=== PATIENT | male | born 1970 | race Caucasian/White ===

== ENCOUNTER 2022-01-03 15:33 | Outpatient (CLI) | payer BC, SELFPAY ==
[2022-01-03 20:11] LABS: Alanine Aminotransferase 74 U/L (6-50); Albumin Level 3.2 g/dL (3.5-5.1); Alkaline Phosphatase 363 U/L (38-126); Anion Gap 9 mmol/L (8-16); Aspartate Amino Transferase 138 U/L (17-59); Bilirubin,Total 5.6 mg/dL (0.2-1.3); Blood Urea Nitrogen 8 mg/dL (9-20); Calcium 8.7 mg/dL (8.4-10.2); Carbon Dioxide 24 mmol/L (22-30); Chloride 106 mmol/L (98-107); Estimated Glomerular Filt Rate > 60; Glucose 77 mg/dL (65-110); Magnesium 1.8 mg/dL (1.6-2.3); Potassium 3.7 mmol/L (3.4-5.0); Sodium 139 mmol/L (137-145)
[2022-01-03 21:34] LABS: Basophils Absolute Auto 0.1 K/mm3 (0.0-0.1); Basophils Percent Auto 1.4 % (0.2-1.2); Eosinophils Absolute Auto 0.1 K/mm3 (0-0.3); Eosinophils Percent Auto 1.7 % (0-4.4); Hematocrit 40.1 % (42.0-52.0); Hemoglobin 12.8 g/dL (14.0-18.0); Immature Granulocyte Absolute 0.01 K/mm3 (0.00-0.031); Immature Granulocyte Percent A 0.3 % (0-0.5); Immature Platelet Fraction Pct 19.2 % (0.9-11.2); Lymphocytes Absolute Auto 1.08 K/mm3 (0.9-3.2); Lymphocytes Percent Auto 31.2 % (18.3-44.2); Mean Corpuscular HGB Conc 31.9 g/dl (32-36); Mean Corpuscular Hemoglobin 36.2 pg (26-34); Mean Corpuscular Volume 113.3 fl (80-100); Mean Platelet Volume 14.8 fl (7.4-10.4); Monocytes Absolute Auto 0.4 K/mm3 (0.1-0.6); Monocytes Percent Auto 11.8 % (2.6-8.5); Neutrophils Absolute Auto 1.9 K/mm3 (1.3-6.7); Neutrophils Percent Auto 53.6 % (45.5-73.1); Platelet Count Result 46 k/mm3 (150-375); Red Blood Count 3.54 M/mm3 (4.6-6.20); Red Cell Distribution Width 15.5 % (11.5-14.5); White Blood Count 3.5 K/mm3 (4.5-10.0)
[2022-01-03 21:51] LABS: Platelet Estimate Decreased (Adequate)
[2022-01-03 21:53] LABS: Microcytosis 1+ (NORMAL)
== END 2022-01-03 15:34 | disposition home or self-care (01) ==
LOC: ANHGOSHLAB 15:35
PROVIDERS: PCP Family Medicine; Visit Provider Family Medicine
DX: E87.6 Hypokalemia (principal); E83.42 Hypomagnesemia; D69.6 Thrombocytopenia, unspecified
CPT/HCPCS: 36415; 80053; 83735; 85025; 85055

== ENCOUNTER 2022-05-05 11:56 | Emergency (ER) | payer BC, SELFPAY ==
[2022-05-05 14:04] VITALS: BP 128/98; PULSE 96; RESP 18; TEMP 36.3; O2SAT 99
--- NOTE | 2022-05-05 15:28 | ED.GENADULT ---
HPI - General Adult General Chief complaint: Extremity Problem,Nontraumatic Stated complaint: cyst on lt knee Time Seen by Provider: 05/05/22 15:24 Source: patient Mode of arrival: ambulatory Limitations: no limitations History of Present Illness HPI narrative: Patient presents today complaining of a bump to his left knee that started 6 days ago that became red and swollen and started draining today. He has applied ice with some relief. History of abscess in the past. Related Data Home Medications Medication Instructions Recorded Confirmed chlordiazepoxide HCl 25 mg capsule 25 mg PO QID PRN anxiety 01/03/22 folic acid 1 mg tablet 1 mg PO DAILY 01/03/22 01/03/22 furosemide 40 mg tablet 40 mg PO DAILY 01/03/22 01/03/22 lactulose 10 gram/15 mL oral 30 ml PO BID 01/03/22 01/03/22 solution nadolol 20 mg tablet 20 mg PO DAILY 01/03/22 01/03/22 pantoprazole 40 mg tablet,delayed 40 mg PO DAILY 01/03/22 01/03/22 release thiamine HCl (vitamin B1) 100 mg 100 mg PO DAILY 01/03/22 01/03/22 tablet Allergies Allergy/AdvReac Type Severity Reaction Status Date / Time No Known Allergies Allergy Unknown Unverified 01/03/22 15:00 Review of Systems Review of Systems: CONSTITUTIONAL: Denies body aches, fever, chills, or sweats. EYES: Denies visual changes, redness, or discharge. ENT: Denies rhinorrhea, congestion, sore throat, or otalgia. CARDIOVASCULAR: Denies chest pain, palpitations, or edema. RESPIRATORY: Denies cough or dyspnea. GASTROINTESTINAL: Denies abdominal pain, nausea, vomiting, or diarrhea. GENITOURINARY: Denies dysuria or hematuria. SKIN: Denies rash, itching, or wounds.+ Cyst to left knee MUSCULOSKELETAL: Denies back pain, joint pain, or myalgia. NEUROLOGIC: Denies headache, numbness, tingling, or weakness. PSYCH: Denies depression or anxiety. [facility] Past Medical History Medical History Alcohol abuse Ascites due to alcoholic cirrhosis Hepatic cirrhosis Family History Family History Mother Heart problem Social History Social History Smoking status: Never smoker Alcohol intake: current Alcohol use details: states he stopped drinking 2-3 daily Substance use type: does not use Comments At time of signature, I have reviewed and agree with nursing past medical, surgical, social and family history unless otherwise noted. Please see nursing chart for further information. There is no relevant family history pertinent to the presenting complaint Exam Narrative: GENERAL: Well-appearing, well-nourished, and in no acute distress. Jaundice HEAD: Normocephalic, atraumatic. EYES: EOMI. No redness or drainage. Conjunctivae normal. ENT: Mucous membranes pink and moist. NECK: Normal AROM. CHEST: No respiratory distress. EXTREMITIES: 3cm fluctuant area to the left upper knee area with large surrounding erythema and increased warmth. Draining serous fluid. Tender to palpation. SKIN: Warm, dry, no rash. Capillary refill normal. Normal skin turgor. NEURO: No focal deficits. Alert and oriented x3. Gait steady. PSYCH: Normal affect. No signs of depression or anxiety. Course Course Level of Care: Express Care Visit Vital Signs Vital signs: Vital Signs Temperature 97.4 F L 05/05/22 14:04 Pulse Rate 96 05/05/22 14:04 Respiratory Rate 18 05/05/22 14:04 Blood Pressure 128/98 H 05/05/22 14:04 Pulse Oximetry 99 05/05/22 14:04 Oxygen Delivery Room Air 05/05/22 14:04 Temperature 97.4 F L 05/05/22 14:04 Pulse Rate 96 05/05/22 14:04 Respiratory Rate 18 05/05/22 14:04 Blood Pressure 128/98 H 05/05/22 14:04 Pulse Oximetry 99 05/05/22 14:04 Oxygen Delivery Room Air 05/05/22 14:04 Reviewed. Pt has been instructed to follow up with his PCP regarding his elevated blood pressure
== END 2022-05-05 16:10 | disposition home or self-care (01) ==
PROVIDERS: Emergency Provider Nurse Practitioner
DX: L03.116 Cellulitis of left lower limb (principal); L02.416 Cutaneous abscess of left lower limb
CPT/HCPCS: 10060; 99213; G0463

== ENCOUNTER 2022-08-25 20:51 | Inpatient (IN) | payer BC, SELFPAY ==
[2022-08-25] VITALS (16 sets, daily range): BP systolic 108–131; BP diastolic 59–72; PULSE 71–92; RESP 12–19; TEMP 36.3; O2SAT 98–100
--- NOTE | ~2022-08-25 | CT_ITS ---
EXAMINATION: CT BRAIN W/O DATE: 08/26/2022 00:48 INDICATION: Confusion. Treatment for stenosis. TECHNIQUE: Computed tomography (CT) of the head was performed without intravenous contrast. The dose- length product was 681.00 mGy-cm. Automated exposure control and iterative reconstruction technique w ere employed. COMPARISON: CT dated 11/12/2018 FINDINGS: Normal brain parenchymal volume for age. Normal tuttle-white differentiation. No acute intrac ranial hemorrhage, infarction, mass or mass effect. No ventriculomegaly or midline shift. Midline sagittal images demonstrate a normal corpus callosum, c raniovertebral junction and sella turcica. Basilar cisterns are patent. There is mucosal thickening of the frontal, maxillary, ethmoid and sphenoid sinuses. Mastoids are pne umatized. IMPRESSION: 1. No acute intracranial abnormality. 2: Pansinusitis. Reviewed, dictated and finalized at location A.
--- NOTE | ~2022-08-25 | US_ITS ---
EXAMINATION: US paracentesis abd w/image DATE: 08/27/2022 12:24 INDICATION: Cirrhosis with ascites TECHNIQUE: The procedure and its risks and benefits were discussed with the patient. Potential risks discussed included bleeding and infection. The skin was prepped and draped in sterile fashion. 1% lid ocaine was used for local anesthesia. Under ultrasound guidance, a 5 Fr catheter with trochar was adv anced into the ascites in the right lower quadrant. Fluid was aspirated into vacuum bottles. The cath eter was removed, and a dressing was applied. There were no immediate complications. FINDINGS: Ultrasound images demonstrate ascites and the catheter within the fluid. IMPRESSION: 1. Successful ultrasound-guided paracentesis yielding 550 mL of cloudy orange-colored fluid. Reviewed, dictated and finalized at location A. IMPRESSION: 1. Successful ultrasound-guided paracentesis yielding 550 mL of cloudy orange- colored fluid.
--- NOTE | ~2022-08-25 | XR_ITS ---
XR chest 2V 08/26/2022 14:21 Indication: Confusion Procedure: 2 view chest Comparison: 11/12/2018 Findings: Moderate left pleural effusion with compressive atelectasis. Right lung clear. Heart size n ormal. No pneumothorax. No acute osseous abnormality. Impression: 1: Moderate left pleural effusion with underlying compressive atelectasis. Reviewed, dictated and finalized at location A. Impression: 1: Moderate left pleural effusion with underlying compressive atelectasis.
--- NOTE | 2022-08-25 20:56 | ECG_ITS ---
Measurements Intervals [place] Rate: 70 P: 28 WI: 130 QRS: 13 QRSD: 109 T: 18 QT: 386 QTc: 419 Interpretive Statements SINUS RHYTHM POSSIBLE LEFT ATRIAL ENLARGEMENT BASELINE ARTIFACT- I, III, AVR, AVL, AVF, V1-V2 BORDERLINE ECG COMPARED TO ECG 11/12/2018 14:03:41 NO SIGNIFICANT CHANGES Electronically Signed On 08-25-2022 21:47:38 CDT by Kelton Veras D.O.
[2022-08-25 21:17] LABS: Basophils Absolute Auto 0.1 K/mm3 (0.0-0.1); Eosinophils Absolute Auto 0.1 K/mm3 (0-0.3); Eosinophils Percent Auto 2.3 % (0-4.4); Hemoglobin 12.2 g/dL (14.0-18.0); Immature Granulocyte Absolute 0.01 K/mm3 (0.00-0.031); Immature Granulocyte Percent A 0.2 % (0-0.5); Immature Platelet Fraction Pct 1.8 % (0.9-11.2); Lymphocytes Absolute Auto 1.05 K/mm3 (0.9-3.2); Lymphocytes Percent Auto 21.6 % (18.3-44.2); Mean Corpuscular Hemoglobin 32.3 pg (26-34); Mean Corpuscular Volume 97.9 fl (80-100); Mean Platelet Volume 9.7 fl (7.4-10.4); Monocytes Absolute Auto 0.4 K/mm3 (0.1-0.6); Neutrophils Absolute Auto 3.3 K/mm3 (1.3-6.7); Neutrophils Percent Auto 66.9 % (45.5-73.1); Platelet Count Result 102 k/mm3 (150-375); Red Blood Count 3.78 M/mm3 (4.6-6.20); Red Cell Distribution Width 15.3 % (11.5-14.5); White Blood Count 4.9 K/mm3 (4.5-10.0)
[2022-08-25 21:30] LABS: INR 2.2; Prothrombin Time 23.3 Seconds (11.1-14.7)
[2022-08-25 22:02] LABS: Alanine Aminotransferase 31 U/L (6-50); Albumin Level 2.9 g/dL (3.5-5.1); Alkaline Phosphatase 200 U/L (38-126); Anion Gap 6 mmol/L (8-16); Aspartate Amino Transferase 71 U/L (17-59); Bilirubin,Total 8.3 mg/dL (0.2-1.3); Blood Urea Nitrogen 7 mg/dL (9-20); Calcium 8.5 mg/dL (8.4-10.2); Carbon Dioxide 25 mmol/L (22-30); Chloride 107 mmol/L (98-107); Estimated CRCL calculation 133 ml/min; Estimated Glomerular Filt Rate > 60; Glucose 113 mg/dL (65-110); Potassium 2.7 mmol/L (3.4-5.0); Sodium 138 mmol/L (137-145)
[2022-08-25 22:39] LABS: Ammonia 77 umol/L (9-30)
[2022-08-25] MEDS: POTASSIUM CHLORIDE 20 MEQ TABLET 40 MEQ PO (23:44)
--- NOTE | 2022-08-25 23:49 | ED.AMS ---
HPI - Altered Mental Status General Chief Complaint: Altered Mental Status <Andres Quezada PA-C - Last Filed: 08/26/22 03:34> Stated Complaint: not acting right, jaundice <Andres Quezada PA-C - Last Filed: 08/26/22 03:34> Time Seen by Provider: 08/25/22 23:14 <Andres Quezada PA-C - Last Filed: 08/26/22 03:34> Source: patient and family <ANG Haro Last Filed: 08/26/22 03:34> Mode of arrival: ambulatory <Andres Quezada PA-C - Last Filed: 08/26/22 03:34> Limitations: altered mental status <Andres Quezada PA-C - Last Filed: 08/26/22 03:34> History of Present Illness HPI narrative: History is somewhat limited due to altered mental status. This is a 51-year-old male who is presenting to the ED with chief complaint of AMS and jaundice beginning yesterday around 2200. Patient has known history of cirrhosis and is being managed by hepatology services at [facility]. He is brought in by brother who is supplementing the history. He states that they changed his diuretic this week at [facility] but is unsure how. Family reports increased lower leg swelling bilaterally. Brother also reports jaundice which is increased. Brother states that patient has not had any complaints of abdominal pain or fevers. Patient denies any fevers or abdominal pain to me as well. Denies LOC. Denies any recent alcohol use <Andres Quezada PA-C - Last Filed: 08/26/22 03:34> Related Data Home Medications: Home Medications Medication Instructions Recorded Confirmed chlordiazepoxide HCl 25 mg capsule 25 mg PO QID PRN anxiety 01/03/22 folic acid 1 mg tablet 1 mg PO DAILY 01/03/22 01/03/22 furosemide 40 mg tablet 40 mg PO DAILY 01/03/22 01/03/22 lactulose 10 gram/15 mL oral 30 ml PO BID 01/03/22 01/03/22 solution nadolol 20 mg tablet 20 mg PO DAILY 01/03/22 01/03/22 pantoprazole 40 mg tablet,delayed 40 mg PO DAILY 01/03/22 01/03/22 release thiamine HCl (vitamin B1) 100 mg 100 mg PO DAILY 01/03/22 01/03/22 tablet <Andres Quezada PA-C - Last Filed: 08/26/22 03:34> Allergies/Adverse Reactions: Allergies Allergy/AdvReac Type Severity Reaction Status Date / Time No Known Allergies Allergy Unknown Verified 08/25/22 20:51 <Andres Quezada PA-C - Last Filed: 08/26/22 03:34> Review of Systems Review of Systems: ROS unobtainable: Yes unobtainable due to mental status <Andres Quezada PA-C - Last Filed: 08/26/22 03:34> PMFSH Past Medical History Medical History: Medical History Alcohol abuse Ascites due to alcoholic cirrhosis Hepatic cirrhosis <Andres Quezada PA-C - Last Filed: 08/26/22 03:34> Family History Family History: Family History Mother Heart problem <Andres Quezada PA-C - Last Filed: 08/26/22 03:34> Social History Social History: Social History Smoking status: Never smoker Alcohol intake: current Alcohol use details: states he stopped drinking 2-3 daily Substance use type: does not use <ANG Haro Last Filed: 08/26/22 03:34> Exam Narrative: GENERAL: Well-appearing, well-nourished, and in no acute distress. HEAD: Normocephalic, atraumatic. EYES: Scleral icterus present. PERRLA and EOMI. ENT: Nares clear, no rhinorrhea or epistaxis. Mucous membranes moist. Oropharynx without tonsillar hypertrophy exudate or other lesions. NECK: Supple. No adenopathy or masses. CHEST: No respiratory distress. Clear to auscultation. No wheezes rales or rhonchi HEART: Regular rate and rhythm. No murmur heard. Normal peripheral pulses. ABDOMEN: Soft, nontender, nondistended, normal active bowel sounds. Negative peritoneal signs. No ascites are appreciated. Negative for vascular markings. EXTREMITIES: Normal range of motion. No edema. SKIN: Diffuse jaundice. warm, dry, no rash.
[2022-08-26] VITALS (36 sets, daily range): BP systolic 97–119; BP diastolic 51–81; PULSE 74–88; RESP 11–16; TEMP 36.2; O2SAT 98–100
[2022-08-26] MEDS: POTASSIUM CHLORIDE INJ 40 MEQ in SODIUM CHLORIDE 0.9% IV 500 ML 130 MEQ IVPB (00:08)
--- NOTE | 2022-08-26 03:43 | PC.NURSE ---
Patient accepted to [facility] WAITLIST. DR. GARCIA ACCEPTING PROVIDER.
[2022-08-26 04:02] LABS: Ethanol < 10 mg/dL (<10); Lactic Acid Reflex 1.5 mmol/L (0.7-2.0)
[2022-08-26 04:11] LABS: Magnesium 1.6 mg/dL (1.6-2.3); Phosphorus 3.5 mg/dL (2.5-4.5)
[2022-08-26] MEDS: MAGNESIUM SULF 2 GM/WATER 50ML 2 GM/50 ML BAG IVPB (04:31)
[2022-08-26 04:55] LABS: Appearance Urine Clear (Clear); Bilirubin Urine 1+ (Negative); Blood Urine Negative (Negative); Color Urine Dark Yellow (Yellow); Glucose Urine UA Negative (Negative); Ketones Urine Negative (Negative); Leukocyte Esterase Ur Negative LEU/UL (Negative); Nitrate Urine Negative (Negative); Protein Urine Negative (Negative); Specific Grav Ur 1.007 (1.001-1.035); pH Urine 7.5 (5.0-9.0)
[2022-08-26 05:19] LABS: Add Urine Microscopic? YES
--- NOTE | 2022-08-26 09:04 | ADMGEN ---
This patient, Ricco Carreon, was admitted to [facility] Surg Room 333-01. Patient/family oriented to hospital policies and general routines including ID bracelet, bed and alarms, visiting hours, pain management, procedures, bathroom and other care routines, personal items, smoking policy, room service/diet, and visiting hours. Information on how to activate the Rapid Response Team has been discussed. Patient/Family are encouraged to report perceived risks to care and to ask questions if they do not understand what they are told or what they should do.
[2022-08-26] MEDS: LACTULOSE 20 GM/30 ML UDC PO ×3 (09:43→18:13)
--- NOTE | 2022-08-26 11:16 | PM.IMHP ---
H&P: [facility] History of Present Illness Date/Time: 08/26/22 11:16 Chief Complaint: Altered mental status Narrative: 51yo male with cirrhosis with varices from alcohol abuse here for altered mental status. Patient is more oriented today but still mildly confused so his history is suspect. States he has been confused for the past 2 days and has been out of it . He has a history of alcoholism drinking up to a 5th a day with his last drink being April 09, 2022. He denies any alcohol use since that time. No drug use. No history of drug use. No history of IV drug use. He receives the majority is care at [facility]. States that his cirrhosis is related to alcoholism. There has been no new medications. He has been compliant with his home medications. No [id number]-vxy-xretqmy medications. He has not had a change in his diet. He is watching his sodium intake. He denies constipation. He has been having 1-2 bowel movements per day. He takes the lactulose 3 times a day and is on rifaximin as well. Denies fever, chills, headaches, chest pain, shortness a breath, cough, nausea, vomiting, abdominal pain, dysuria, hematuria, melena or hematochezia. His last paracentesis he believes was in June. He has a hx of SBP. He has bilateral pedal edema that has been present over the past 3-4 months although he seems unsure of this. He denies any history of CHF. No calf pain. No pleuritic chest pain. In the ED, patient was hemodynamically stable. White count was normal. Hemoglobin was 12. Platelet count was 102 K. Patient has a history of thrombocytopenia. INR is 2.2. Potassium was 2.7. Bilirubin is 8.3 which is not uncommon for this patient. Ammonia level 77. Urinalysis showed 1+ bilirubin otherwise negative. Alcohol levels less than 10. Head CT showed no acute intracranial abnormalities but did show pansinusitis. Patient denies any headache, vision changes, hearing changes or sinus symptoms. EKG showed normal sinus rhythm but no significant change from prior EKG. Patient was treated with lactulose. He was given magnesium and potassium. He was admitted for further care. Review of Systems Review of Systems: All systems reviewed & are unremarkable except as noted in HPI and below [facility] Past Medical History Medical History (Updated 08/26/22 @ 12:12 by Cisco Schaeffer MD) Alcohol abuse Anemia Ascites due to alcoholic cirrhosis Choledocholithiasis Coagulopathy Esophageal varices hx of banding. Hepatic cirrhosis Hyperbilirubinemia 7-9 range in early 2022 Hyponatremia SBP (spontaneous bacterial peritonitis) Family History Family History Mother Heart problem Social History Social History Smoking status: Never smoker Alcohol intake: current Alcohol use details: states he stopped drinking 2-3 daily Substance use type: does not use Lack of Transportation: No Lack of Food: Never True Current Housing: I Have Housing Concerned About Future Housing: No Difficulty Paying Gas/Electric Bills: Decline to Answer Difficulty Paying for Meds: Decline to Answer Currently Unemployed: Decline to Answer Education: Decline to Answer Difficulty w/ Childcare or Family Care: No Spiritual care concerns: No Meds Home Medications and Allergies Home Medications Medication Instructions Recorded Confirmed Type eplerenone 50 mg tablet 50 mg PO DAILY #90 tabs 01/03/22 08/26/22 Rx folic acid 1 mg tablet 1 mg PO DAILY 01/03/22 08/26/22 History furosemide 40 mg tablet 40 mg PO DAILY 01/03/22 08/26/22 History lactulose 10 gram/15 mL oral 30 ml PO BID 01/03/22 08/26/22 History solution nadolol 20 mg tablet 20 mg PO DAILY 01/03/22 08/26/22 History pantoprazole 40 mg tablet,delayed 40 mg PO DAILY 01/03/22 08/26/22 History release rifaximin 550 mg tablet (Xifaxan) 550 mg PO BID #60 tabs 01/03/22 03
[2022-08-26] MEDS: nadoloL 20 MG TABLET PO (12:52)
[2022-08-26] MEDS: POTASSIUM CHLORIDE 20 MEQ TABLET PO (12:53)
[2022-08-26] MEDS: PANTOPRAZOLE 40 MG TABLET PO (12:53)
[2022-08-26] MEDS: FOLIC ACID 1 MG TABLET PO (12:53)
[2022-08-26] MEDS: FUROSEMIDE 40 MG TABLET PO (12:53)
[2022-08-26] MEDS: POTASSIUM PHOS/SODIUM PHOS 250 MG TABLET PO (12:53)
[2022-08-26] MEDS: rifAXIMin 550 MG TABLET PO ×2 (12:53→21:08)
[2022-08-26] MEDS: THIAMINE HCL 100 MG TABLET PO (12:54)
[2022-08-26 13:29] LABS: Potassium 3.1 mmol/L (3.4-5.0)
--- NOTE | 2022-08-26 16:53 | WPDGICN ---
Assessment and Plan Assessment and plan (1) Acute hepatic encephalopathy: Code(s): K76.82 - Hepatic encephalopathy Status: Acute Assessment and Plan: he is near his baseline continue lactulose- ok to titrate for 3-4 BM a day, already on xifaxan (2) Decompensation of cirrhosis of liver: Code(s): K72.90 - Hepatic failure, unspecified without coma; K74.60 - Unspecified cirrhosis of liver Status: Acute Assessment and Plan: with known history of EV s/p banding on nadolol, previous paracentesis (abdomen exam benign but agree to get ultrasound to assess if ascites and if present then get fluid for study) meld score 24 (similar to recent office visit) (3) Coagulopathy: Code(s): D68.9 - Coagulation defect, unspecified Status: Acute Assessment and Plan: from liver disease (4) Hyperbilirubinemia: Code(s): E80.6 - Other disorders of bilirubin metabolism Status: Acute (5) Esophageal varices: Code(s): I85.00 - Esophageal varices without bleeding Status: Acute Assessment and Plan: no signs of bleeding (6) Acute hypokalemia: Code(s): E87.6 - Hypokalemia Status: Acute Assessment and Plan: treated GI Consult Note Consult date/time: 08/26/22 16:53 Reason for consult: liver encephalopathy, cirrhosis HPI: Ricco Carreon is a 51 year old male with history of alcoholic decompensated cirrhosis (sober since ) with known history of PSE on lactulose and xifaxan, previous paracentesis and EV on nadolol. He is seeing hepatology in [facility]. He came here with because has been confused for the past 2 days, denies any fever, pain or change in medications, he has been compliant with his home medications. He has been having 1-2 bowel movements per day and takes the lactulose 3 times a day and is on rifaximin as well.?ED evaluation he was hemodynamically stable.? White count was normal.? Hemoglobin was 12.? Platelet count was 102 K.? INR is 2.2.? Potassium was 2.7.? Bilirubin is 8.3, creat 0.9.? Ammonia level 77. Review of Systems Constitutional: Constitutional: Denies chills Eyes: Eyes: Denies blurry vision ENT: Reports Normal hearing present Cardiovascular: Cardiovascular: Denies chest pain Respiratory: Respiratory: Denies cough Gastrointestinal: Gastrointestinal: Denies abdominal pain Genitourinary: Genitourinary: Denies urinary frequency Musculoskeletal: Musculoskeletal: Denies back pain Integumentary/Breasts: Skin/Breast: Denies rash Neurologic: Reports confusion Psychiatric: Psychiatric: Denies homicidal ideation [facility] Past Medical History Medical History (Updated 08/26/22 @ 16:58 by Nathan Rebolledo MD) Alcohol abuse Anemia Ascites due to alcoholic cirrhosis Choledocholithiasis Coagulopathy Decompensation of cirrhosis of liver Esophageal varices hx of banding. Hepatic cirrhosis Hyperbilirubinemia 7-9 range in early 2022 Hyponatremia SBP (spontaneous bacterial peritonitis) Family History Family History Mother Heart problem Social History Social History Smoking status: Never smoker Alcohol intake: current Alcohol use details: states he stopped drinking 2-3 daily Substance use type: does not use Lack of Transportation: No Lack of Food: Never True Current Housing: I Have Housing Concerned About Future Housing: No Difficulty Paying Gas/Electric Bills: Decline to Answer Difficulty Paying for Meds: Decline to Answer Currently Unemployed: Decline to Answer Education: Decline to Answer Difficulty w/ Childcare or Family Care: No Spiritual care concerns: No Meds Home Medications and Allergies Home Medications Medication Instructions Recorded Confirmed Type eplerenone 50 mg tablet 50 mg PO DAILY #90 tabs 01/03/22 08/26/22 Rx folic acid 1 m
[2022-08-26] MEDS: POTASSIUM CHLORIDE 20 MEQ TABLET 40 MEQ PO (21:08)
[2022-08-27 06:37] VITALS: BP 139/61; PULSE 73; RESP 16; TEMP 35.9; O2SAT 100
[2022-08-27 06:57] LABS: Hematocrit 30.3 % (42.0-52.0); Hemoglobin 9.9 g/dL (14.0-18.0); Immature Platelet Fraction Pct 1.8 % (0.9-11.2); Mean Corpuscular HGB Conc 32.7 g/dl (32-36); Mean Corpuscular Hemoglobin 32.1 pg (26-34); Mean Corpuscular Volume 98.4 fl (80-100); Mean Platelet Volume 10.3 fl (7.4-10.4); Platelet Count Result 90 k/mm3 (150-375); Red Blood Count 3.08 M/mm3 (4.6-6.20); Red Cell Distribution Width 15.7 % (11.5-14.5); White Blood Count 3.7 K/mm3 (4.5-10.0)
[2022-08-27 07:03] LABS: Alanine Aminotransferase 28 U/L (6-50); Albumin Level 2.4 g/dL (3.5-5.1); Alkaline Phosphatase 149 U/L (38-126); Anion Gap 1 mmol/L (8-16); Aspartate Amino Transferase 60 U/L (17-59); Bilirubin,Total 6.6 mg/dL (0.2-1.3); Blood Urea Nitrogen 8 mg/dL (9-20); Calcium 7.8 mg/dL (8.4-10.2); Carbon Dioxide 26 mmol/L (22-30); Chloride 110 mmol/L (98-107); Estimated CRCL calculation 92 ml/min; Estimated Glomerular Filt Rate > 60; Glucose 74 mg/dL (65-110); Magnesium 1.6 mg/dL (1.6-2.3); Potassium 2.5 mmol/L (3.4-5.0); Sodium 137 mmol/L (137-145)
[2022-08-27] MEDS: MAGNESIUM SULF 2 GM/WATER 50ML 2 GM/50 ML BAG IVPB ×2 (09:52→17:34)
[2022-08-27] MEDS: LACTULOSE 20 GM/30 ML UDC PO ×3 (09:55→17:33)
[2022-08-27] MEDS: FUROSEMIDE 40 MG TABLET PO (09:55)
[2022-08-27] MEDS: POTASSIUM PHOS/SODIUM PHOS 250 MG TABLET PO (09:55)
[2022-08-27] MEDS: FOLIC ACID 1 MG TABLET PO (09:55)
[2022-08-27 09:56] VITALS: PULSE 76
[2022-08-27] MEDS: PANTOPRAZOLE 40 MG TABLET PO (09:56)
[2022-08-27] MEDS: nadoloL 20 MG TABLET PO (09:56)
[2022-08-27] MEDS: THIAMINE HCL 100 MG TABLET PO (09:57)
[2022-08-27] MEDS: rifAXIMin 550 MG TABLET PO ×2 (09:57→20:49)
[2022-08-27] MEDS: POTASSIUM CHLORIDE INJ 40 MEQ in SODIUM CHLORIDE 0.9% IV 500 ML 130 MEQ IVPB (10:00)
--- NOTE | 2022-08-27 11:23 | PM.IMPN ---
Progress Note: A&P Assessment and Plan (1) Acute hepatic encephalopathy: Code(s): K76.82 - Hepatic encephalopathy Status: Acute Assessment and Plan: Patient presents with altered mental status. He has a history of hepatic encephalopathy. Ammonia level was 77. HCT showing pansinusitis but no acute intracranial abnormalities. No symptoms of sinusitis. CXR showing left pleural effusion. Mental status has normalized. Paracentesis ordered to exclude SBP. Follow up on paracentesis results if able to withdraw fluid. No albumin infusion since doubt this will be large volume. Continue Lactulose and Rifaximin (2) Acute alteration in mental status: Code(s): R41.82 - Altered mental status, unspecified Status: Acute Assessment and Plan: Related to above. (3) Hypokalemia: Code(s): E87.6 - Hypokalemia Status: Acute Assessment and Plan: Potassium was low on admission. Potassium was replaced. We continue oral potassium. Potassium low again so will replace and repeat levels later today. Also replace mag. (4) Cirrhosis: Code(s): K74.60 - Unspecified cirrhosis of liver Status: Acute Assessment and Plan: Pateint has alcoholic cirrhosis that he is followed for at [facility]. (5) Esophageal varices: Code(s): I85.00 - Esophageal varices without bleeding Status: Acute Assessment and Plan: Related to cirrhosis. No evidence of bleeding. (6) Alcohol abuse: Code(s): F10.10 - Alcohol abuse, uncomplicated Status: Acute Assessment and Plan: In remission. Last drink was 04/09/22. (7) Hyperbilirubinemia: Code(s): E80.6 - Other disorders of bilirubin metabolism Status: Acute Assessment and Plan: Bili elevated but chronic and actually better today than baseline. Follow. (8) Anemia: Code(s): D64.9 - Anemia, unspecified Status: Acute Assessment and Plan: Hgb low but stable. Anemai related to above (9) Coagulopathy: Code(s): D68.9 - Coagulation defect, unspecified Status: Acute Assessment and Plan: INR was therapeutic related to hepatic dysfunction. Subjective Date/time seen: 08/27/22 11:23 Interval history: 51yo male with cirrhosis with varices from alcohol abuse here for altered mental status.? Slept poorly last night. His leg edema is better he feels. He has been up walking to the bathroom. He denies feeling confused. Exam Narrative: AF 96.7 139/61 76 16 100% ra Gen - NARD Chest - decreased BS in the left base o/w clear. CV - RRR S1/S2 Abd - Soft, NT/ND, Positive BS Ext - 1+ pedal edema Neuro - Alert and oriented x4. Psych - Nml mood and affect Skin - Warm and dry Objective Data Vital Signs Vital Signs: Vital Signs - 24 hr 08/26/22 12:52 08/26/22 20:00 08/26/22 23:18 Temperature 97.2 F L Pulse Rate 84 84 83 Respiratory Rate 12 16 Blood Pressure 119/54 L Pulse Oximetry 100 100 Oxygen Delivery Room Air 08/27/22 06:37 08/27/22 09:56 Temperature 96.7 F L Pulse Rate 73 76 Respiratory Rate 16 Blood Pressure 139/61 Pulse Oximetry 100 Oxygen Delivery Intake/Output Intake/Output: Intake & Output 08/24/22 08/25/22 08/26/22 08/27/22 23:59 23:59 23:59 23:59 Intake Total 1494 720 Output Total 900 Balance 594 720 Meds/Results Medications: Active Medications Generic Name Dose Route Start Last Admin Trade Name Freq PRN Reason Stop Dose Admin Folic Acid 1 mg 08/26/22 12:20 08/27/22 09:55 Folic Acid 1 Mg Tablet PO 1 mg DAILY CELINE Administration Furosemide 40 mg 08/26/22 12:20 08/27/22 09:55 Furosemide 40 Mg Tablet PO 40 mg DAILY CELINE Administration Potassium Chloride 40 meq/ 520 mls @ 130 mls/hr 08/27/22 10:00 08/27/22 10:00 Sodium Chloride IVPB 08/27/22 13:59 130 mls/hr ONCE ONE Administration Lactulose 20 gm 08/26/22 13:00 08/27/22 09:55
[2022-08-27 12:56] LABS: Appearance Peritoneal Fluid Cloudy (Clear); Color Peritoneal Fluid Yellow (Colorless); Source Peritoneal Fluid Peritoneal Fluid
[2022-08-27 12:57] LABS: Nucleated Cells Peritoneal Flu 57 /uL (0-500); RBC Peritoneal Fluid 4000 /uL (0-100000)
[2022-08-27 13:19] LABS: Lymphocytes Peritoneal Fluid 78 %
[2022-08-27 13:20] LABS: Macrophages Peritoneal Fluid 10 %; Monocytes Peritoneal Fluid 7 %
[2022-08-27 15:52] LABS: Magnesium 1.9 mg/dL (1.6-2.3); Phosphorus 4.3 mg/dL (2.5-4.5)
--- NOTE | 2022-08-27 16:36 | WPDGIPROGNO ---
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 good appetite, back to his baseline. Also noted low K Review of Systems Review of Systems: All systems reviewed & are unremarkable except as noted in HPI and below Exam Const: General: comfortable and no acute distress HENMT: Face/Nose/Sinus: Normal nares present Eyes: Other: icteric sclerae Neck: Neck: supple Resp: Effort & Inspection: normal respiratory effort Cardio: Rate: regular rate GI: GI Palp: Yes Soft to palpation, No Tenderness to palpation present (GI) and No Guarding due to palpation present (GI) Auscultation: normal bowel sounds Skin: General skin exam: no rashes or lesions noted Neuro: Speech: normal speech Other: asterixis Extrem: General: normal to inspection Psych: Affect: normal affect Objective Data Vital Signs Vital Signs: Vital Signs - 24 hr 08/26/22 20:00 08/26/22 23:18 08/27/22 06:37 Temperature 97.2 F L 96.7 F L Pulse Rate 84 83 73 Respiratory Rate 12 16 16 Blood Pressure 119/54 L 139/61 Pulse Oximetry 100 100 100 Oxygen Delivery Room Air 08/27/22 09:56 Temperature Pulse Rate 76 Respiratory Rate Blood Pressure Pulse Oximetry Oxygen Delivery Intake/Output Intake/Output: Intake & Output 03/17/23 03/18/23 03/19/23 03/20/23 23:59 23:59 23:59 23:59 Intake Total 1494 720 Output Total 900 550 Balance 594 170 Meds/Results Medications: Active Medications Generic Name Dose Route Start Last Admin Trade Name Collin PRN Reason Stop Dose Admin Folic Acid 1 mg 08/26/22 12:20 08/27/22 09:55 Folic Acid 1 Mg Tablet PO 1 mg DAILY CELINE Administration Furosemide 40 mg 08/26/22 12:20 08/27/22 09:55 Furosemide 40 Mg Tablet PO 40 mg DAILY CELINE Administration Magnesium Sulfate 2 gm in 50 mls @ 50 mls/hr 08/27/22 16:17 Magnesium Sulf 2 Gm/Water 50ml IVPB 08/27/22 17:16 ONCE ONE Lactulose 20 gm 08/26/22 13:00 08/27/22 13:23 Lactulose 20 Gm/30 Ml Udc PO 20 gm TID CELINE Administration Melatonin 3 mg 08/27/22 21:00 Melatonin 3 Mg Tablet PO HS [facility] Miscellaneous Information 0 each 08/26/22 00:01 Eplerenone 50 Mg Tablet = Non Form, Can Home Med Be Brought In? XX 09/25/22 00:00 CLARIFY CELINE Nadolol 20 mg 08/26/22 12:25 08/27/22 09:56 Nadolol 20 Mg Tablet PO 20 mg DAILY CELINE Administration Non-Formulary Medication 50 mg 08/26/22 12:20 Eplerenone PO 09/25/22 12:19 DAILY CELINE Pantoprazole Sodium 40 mg 08/26/22 12:25 08/27/22 09:56 Pantoprazole 40 Mg Tablet PO 40 mg DAILY CELINE Administration Potassium Chloride 40 meq 08/28/22 09:00 Potassium Chloride 20 Meq Tablet PO 09/25/22 12:19 DAILY CELINE Rifaximin 550 mg 08/26/22 12:25 08/27/22 09:57 Rifaximin 550 Mg Tablet PO 550 mg Q12HR CELINE Administration Sodium Phosphate 250 mg 08/26/22 12:25 08/27/22 09:55 Potassium Phos/Sodium Phos 250 Mg Tablet PO 09/25/22 12:24 250 mg DAILY CELINE Administration Thiamine HCl 100 mg 08/26/22 12:25 08/27/22 09:57 Thiamine H
[2022-08-27] MEDS: POTASSIUM CHLORIDE 20 MEQ TABLET 40 MEQ PO (17:33)
[2022-08-27 20:00] VITALS: PULSE 73; RESP 16; O2SAT 98
[2022-08-27] MEDS: MELATONIN 3 MG TABLET PO (20:49)
[2022-08-27 21:48] VITALS: BP 117/60; PULSE 73; RESP 16; TEMP 36.4; O2SAT 98
[2022-08-28 05:40] VITALS: BP 109/66; PULSE 92; RESP 16; TEMP 36.8; O2SAT 98
[2022-08-28 06:25] LABS: Alanine Aminotransferase 26 U/L (6-50); Albumin Level 2.2 g/dL (3.5-5.1); Alkaline Phosphatase 163 U/L (38-126); Anion Gap 2 mmol/L (8-16); Aspartate Amino Transferase 57 U/L (17-59); Bilirubin,Total 5.3 mg/dL (0.2-1.3); Blood Urea Nitrogen 9 mg/dL (9-20); Calcium 7.8 mg/dL (8.4-10.2); Carbon Dioxide 24 mmol/L (22-30); Chloride 110 mmol/L (98-107); Estimated CRCL calculation 103 ml/min; Estimated Glomerular Filt Rate > 60; Glucose 88 mg/dL (65-110); Magnesium 1.9 mg/dL (1.6-2.3); Sodium 136 mmol/L (137-145)
[2022-08-28] MEDS: LACTULOSE 20 GM/30 ML UDC PO ×2 (08:43→12:26)
[2022-08-28] MEDS: POTASSIUM PHOS/SODIUM PHOS 250 MG TABLET PO (08:43)
[2022-08-28] MEDS: rifAXIMin 550 MG TABLET PO (08:43)
[2022-08-28] MEDS: PANTOPRAZOLE 40 MG TABLET PO (08:44)
[2022-08-28] MEDS: FUROSEMIDE 40 MG TABLET PO (08:44)
[2022-08-28] MEDS: POTASSIUM CHLORIDE 20 MEQ TABLET PO (08:44)
[2022-08-28] MEDS: THIAMINE HCL 100 MG TABLET PO (08:44)
[2022-08-28] MEDS: nadoloL 20 MG TABLET PO (08:44)
[2022-08-28] MEDS: FOLIC ACID 1 MG TABLET PO (08:44)
[2022-08-28] MEDS: POTASSIUM CHLORIDE 20 MEQ TABLET 40 MEQ PO (08:44)
[2022-08-28 14:00] VITALS: BP 117/65; PULSE 69; RESP 16; TEMP 36.4; O2SAT 100
--- NOTE | 2022-08-28 15:41 | PM.DS ---
DS: Admitting Diagnosis Discharge Date 08/28/22 Admitting Diagnosis Altered mental status. DS: Discharge Diagnosis Discharge Diagnosis (1) Acute hepatic encephalopathy: Code(s): K76.82 - Hepatic encephalopathy Status: Acute (2) Acute alteration in mental status: Code(s): R41.82 - Altered mental status, unspecified Status: Acute (3) Hypokalemia: Code(s): E87.6 - Hypokalemia Status: Acute (4) Cirrhosis: Code(s): K74.60 - Unspecified cirrhosis of liver Status: Acute (5) Esophageal varices: Code(s): I85.00 - Esophageal varices without bleeding Status: Acute (6) Alcohol abuse: Code(s): F10.10 - Alcohol abuse, uncomplicated Status: Acute (7) Hyperbilirubinemia: Code(s): E80.6 - Other disorders of bilirubin metabolism Status: Acute (8) Anemia: Code(s): D64.9 - Anemia, unspecified Status: Acute (9) Coagulopathy: Code(s): D68.9 - Coagulation defect, unspecified Status: Acute DS: Summary Hospital Course Reason for hospitalization: 51yo male with cirrhosis with varices from alcohol abuse here for altered mental status. Please see H&P for details Hospital Course: Patient presented with altered mental status. He has a history of cirrhosis with hepatic encephalopathy. Ammonia level was 77. Head CT showed pansinusitis but no acute intracranial abnormalities. Patient denies any sinus symptoms. Chest x-ray showed a left pleural effusion. Patient was continued on lactulose. He was continued on his rifaximin. Mental status normalized. Paracentesis was performed to rule out SBP. We were only able to obtain 500 mL of fluid that was cloudy and yellow. There were 57 nucleated cells. Gram stain showed white blood cells but no organisms. Blood cultures were no growth to date. Alcohol levels less than 10. Hemoglobin was 12.2 but dropped to 10. No evidence of acute GI bleed. BUN was normal. Potassium was low at 2.7. This was replaced. We advanced his oral home potassium dose. Bilirubin level was 8.3 but this trended down to 5.3. Urinalysis was not consistent with UTI. GI was consulted. Patient overall did well and was able to be discharged home on 08/28/2022. Status at Discharge Cognitive/behavioral status at discharge: Stable Time Spent with Patient Time attestation: Total time spent providing and/or coordinating discharge services: 35 minutes Time spent: Greater than 30 minutes Exam Narrative: AF 97.5 117/65 69 16 100% ra Gen - NARD Chest - decreased BS in the left base o/w clear. CV - RRR S1/S2 Abd - Soft, NT/ND, Positive BS Ext - ana rosa hose in place Neuro - Alert and oriented x4. Psych - Nml mood and affect Skin - Warm and dry DS: Data Data Completed and Pending Pending studies at discharge: Pending at discharge 08/26/22 12:22 Cytology [PTH] Routine Labs on day of discharge: Labs from last 24 hours 08/28/22 08/27/22 05:41 15:32 Sodium 136 L Potassium 3.0 L 3.0 L Chloride 110 H Carbon Dioxide 24 Anion Gap 2 L BUN 9 Creatinine 0.80 Estim Creat Clear Calc 103 Estimated GFR > 60 Glucose 88 Calcium 7.8 L Phosphorus 4.3 Magnesium 1.9 1.9 Total Bilirubin 5.3 H AST 57 ALT 26 Alkaline Phosphatase 163 H Total Protein 6.0 L Albumin 2.2 L Preliminary micro results at discharge 08/27/22 12:20 Anaerobic Culture - Preliminary Peritoneal Fluid 08/26/22 03:42 Blood Culture - Preliminary Blood 08/26/22 03:42 Blood Culture - Preliminary Blood Discharge Plan Discharge Attending physician on discharge: Cisco Schaeffer Consulting providers: Andres Quezada Discharging Clinician: Cisco Schaeffer Anticipated Discharge Date/Time: 08/28/22 15:49 Patient Disposition: Home, Self-Care Activity: as tolerated Diet: low sodium Discharge Instructions: Take precautions to avoid fall
== END 2022-08-28 16:35 | disposition home or self-care (01) | DRG 442 ==
LOC: ANHED 08-26 06:35 → ANH3MEDSUR 08-27 09:32
PROVIDERS: Emergency Medicine; Admitting Provider Internal Medicine; Emergency Provider Physician Assistant; PCP Family Medicine; Visit Provider Internal Medicine
DX: K76.82 Hepatic encephalopathy (principal); D68.9 Coagulation defect, unspecified; I85.00 Esophageal varices without bleeding; K70.30 Alcoholic cirrhosis of liver without ascites; E87.6 Hypokalemia; F10.10 Alcohol abuse, uncomplicated; D64.9 Anemia, unspecified; E80.6 Other disorders of bilirubin metabolism; Z79.899 Other long term (current) drug therapy
CPT/HCPCS: 36415; 49083; 70450; 71046; 80053; 80307; 81001; 82140; 83605; 83735; 84100; 84132; 85025; 85027; 85055; 85610; 85730; 87040; 87070; 87075; 87205; 88104; 88108; 88305; 89051; 93005; 96365; 96366; 96367; 99285; A9270; J3475; J3480; J7040